=== PATIENT | male | born 1965 | race Caucasian/White ===

== ENCOUNTER 2022-12-08 13:41 | Emergency (ER) | payer MEDICAID, OTHER ==
[~2022-12-08] VITALS: Ht 165.1 cm; Wt 77.3 kg
[~2022-12-08 13:41] MED LIST: NO HOME MEDS
[2022-12-08 17:38] VITALS: BP 129/84
[2022-12-08] MEDS ORDERED: ketorolac trometh. 30mg/ml inj. IM ONE (18:15)
[2022-12-08] MEDS ORDERED: ORPH100T2 PO (18:19)
[2022-12-08] MEDS ORDERED: HYDR-3972 PO (18:19)
== END 2022-12-08 18:32 | disposition home or self-care (01) ==
LOC: ER 13:41
DX: M53.3 Sacrococcygeal disorders, not elsewhere classified (principal); G89.29 Other chronic pain; F17.200 Nicotine dependence, unspecified, uncomplicated; Z72.89 Other problems related to lifestyle; Z98.890 Other specified postprocedural states; Z88.5 Allergy status to narcotic agent; Z79.899 Other long term (current) drug therapy
CPT/HCPCS: 99283

== ENCOUNTER 2023-02-24 14:00 | Emergency (ER) | payer MEDICAID ==
[~2023-02-24] VITALS: Ht 165.1 cm; Wt 75.0 kg
[~2023-02-24 14:00] MED LIST changes: +ORPH100T4 PO
[2023-02-24] MEDS ORDERED: ketorolac tromethamine 15mg/ml inj. IM ONE (19:40)
[2023-02-24 20:02] VITALS: BP 151/97
[2023-02-24 21:05] LABS: BASOPHILS # (AUTO) 0.1 X10'3 (0-0.2); BASOPHILS % (AUTO) 0.8 % (0-1); EOSINOPHILS # (AUTO) 0.3 X10'3 (0-0.9); EOSINOPHILS % (AUTO) 3.8 % (0-6); HEMOGLOBIN 15.7 g/dl (14.0-17.9); LYMPHOCYTES # (AUTO) 1.4 X10'3 (1.1-4.8); LYMPHOCYTES % (AUTO) 16.2 % (21-51); MEAN CORPUSCULAR HEMOGLOBIN 30.1 PG (27.0-31.0); MEAN CORPUSCULAR HGB CONC 33.3 g/dL (33.0-36.5); MEAN CORPUSCULAR VOLUME 90.3 FL (78-98); MEAN PLATELET VOLUME 7.7 FL (7.4-10.4); MONOCYTES # (AUTO) 0.7 X10'3 (0-0.9); MONOCYTES % (AUTO) 8.2 % (2-12); NEUTROPHILS # (AUTO) 6.2 X10'3 (1.8-7.7); PLATELET COUNT 238 X10'3 (140-440); RED CELL DISTRIBUTION WIDTH 13.4 % (11.5-14.5); WHITE BLOOD COUNT 8.8 X10'3 (4.5-11.0)
[2023-02-24 21:16] LABS: ALANINE AMINOTRANSFERASE 46 U/L (12-78); ALBUMIN/GLOBULIN RATIO 1.4 (1.1-1.5); ALKALINE PHOSPHATASE 69 IU/L (46-116); ANION GAP 5 (8-16); ASPARTATE AMINO TRANSFERASE 24 U/L (10-37); BILIRUBIN,TOTAL 0.3 MG/DL (0.1-1.0); BLOOD UREA NITROGEN 13 MG/DL (7-18); BUN/CREATININE RATIO 16.3 (10.0-20.0); CALCIUM 9.1 MG/DL (8.5-10.1); CHLORIDE 104 MMOL/L (99-107); GLUCOSE 136 MG/DL (70-104); POTASSIUM 4.2 MMOL/L (3.5-5.1); SODIUM 139 MMOL/L (135-145); TOTAL CARBON DIOXIDE 29.9 MMOL/L (24-32); TOTAL PROTEIN 6.9 G/DL (6.4-8.2); eGFR > 90 ML/MIN
[2023-02-24] MEDS ORDERED: HYDR-3973 PO (22:02)
[2023-02-24] MEDS ORDERED: LIDO1ADH67 TOP (22:04)
[2023-02-24] MEDS ORDERED: HYDROcodone/acetaminophen 5mg/325mg tablet PO ONE (22:25)
== END 2023-02-24 22:41 | disposition home or self-care (01) ==
LOC: ER 14:00
DX: J32.8 Other chronic sinusitis (principal)
CPT/HCPCS: 36415; 70450; 80053; 85025; 96372; 99285; J1885

== ENCOUNTER 2023-10-07 23:35 | Emergency (ER) | payer MEDICAID ==
[~2023-10-07] VITALS: Ht 165.1 cm; Wt 75.0 kg
[~2023-10-07 23:35] MED LIST changes: +LIDO1ADH67 TOP
[2023-10-07 23:43] VITALS: TEMP 98.6
[2023-10-07 23:55] LABS: BASOPHILS # (AUTO) 0.1 X10'3 (0-0.2); BASOPHILS % (AUTO) 0.8 % (0-1); EOSINOPHILS # (AUTO) 0.1 X10'3 (0-0.9); EOSINOPHILS % (AUTO) 1.1 % (0-6); HEMATOCRIT 48.2 % (42.0-52.0); HEMOGLOBIN 16.1 g/dl (14.0-17.9); LYMPHOCYTES # (AUTO) 1.8 X10'3 (1.1-4.8); LYMPHOCYTES % (AUTO) 19.1 % (21-51); MEAN CORPUSCULAR HEMOGLOBIN 30.1 PG (27.0-31.0); MEAN CORPUSCULAR HGB CONC 33.5 g/dL (33.0-36.5); MEAN CORPUSCULAR VOLUME 89.7 FL (78-98); MEAN PLATELET VOLUME 7.8 FL (7.4-10.4); MONOCYTES % (AUTO) 10.6 % (2-12); NEUTROPHILS # (AUTO) 6.3 X10'3 (1.8-7.7); NEUTROPHILS % (AUTO) 68.4 % (42-75); PLATELET COUNT 251 X10'3 (140-440); RED BLOOD COUNT 5.37 X10'6 (4.70-6.10); RED CELL DISTRIBUTION WIDTH 12.8 % (11.5-14.5); WHITE BLOOD COUNT 9.2 X10'3 (4.5-11.0)
[2023-10-08 00:35] LABS: ALANINE AMINOTRANSFERASE 30 U/L (12-78); ALBUMIN 3.9 G/DL (3.4-5.0); ALKALINE PHOSPHATASE 72 IU/L (46-116); ANION GAP 9 (8-16); ASPARTATE AMINO TRANSFERASE 23 U/L (10-37); BILIRUBIN,TOTAL 0.3 MG/DL (0.1-1.0); BLOOD UREA NITROGEN 14 MG/DL (7-18); BUN/CREATININE RATIO 15.2 (10.0-20.0); CALCIUM 9.5 MG/DL (8.5-10.1); CHLORIDE 104 MMOL/L (99-107); CREATININE 0.92 MG/DL (0.60-1.10); GLUCOSE 100 MG/DL (70-104); POTASSIUM 4.1 MMOL/L (3.5-5.1); PRO BRAIN NATRIURETIC PEPTIDE 56 PG/ML (0-125); SODIUM 141 MMOL/L (135-145); TOTAL CARBON DIOXIDE 27.8 MMOL/L (24-32); eCRCL 74 ML/MIN; eGFR 84 ML/MIN
[2023-10-08] MEDS ORDERED: morphine 4 MG/ML inj SYRINge IV ONE ×2 (03:05→03:26)
[2023-10-08] MEDS ORDERED: nitroGLYCERIN 1gm ointment UD TP ONE ×2 (03:05→03:33)
[2023-10-08] MEDS ORDERED: ondansetron/PF 4mg/2ml inj IV ONE (03:05)
[2023-10-08] MEDS ORDERED: iohexol 350MG/ML 100ml bottle IV ONE (03:21)
[2023-10-08] MEDS ORDERED: ondansetron/PF 4mg/2ml inj ONE (03:26)
[2023-10-08] MEDS ORDERED: diazepam inj 5 MG/ML inj. IV ONE (04:35)
[2023-10-08 05:08] VITALS: BP 143/87; PULSE 60; RESP 16; O2SAT 99
== END 2023-10-08 06:05 | disposition home or self-care (01) ==
LOC: ER 23:35
DX: R07.89 Other chest pain (principal); Z79.899 Other long term (current) drug therapy
CPT/HCPCS: 36415; 71045; 71275; 80053; 83880; 84484; 85025; 93005; 96374; 96375; 99285; J2270; J2405; J3360; J3490; Q9967

== ENCOUNTER → 2024-04-27 | Outpatient (CLI) | payer MEDICAID, OTHER | END | disposition home or self-care (01) | LOC: RAD 13:43 | PROVIDERS: ATTEND Internal Medicine Cardiovascular Disease | DX: R06.02 Shortness of breath (principal) | CPT/HCPCS: 71046 ==

== ENCOUNTER 2024-05-12 14:49 | Observation (INO) | payer MEDICAID ==
[2024-05-08 15:30] LABS: BASOPHILS # (AUTO) 0.1 X10'3 (0-0.2); BASOPHILS % (AUTO) 0.7 % (0-1); EOSINOPHILS # (AUTO) 0.2 X10'3 (0-0.9); EOSINOPHILS % (AUTO) 2.9 % (0-6); LYMPHOCYTES # (AUTO) 1.2 X10'3 (1.1-4.8); MEAN CORPUSCULAR HEMOGLOBIN 30.5 PG (27.0-31.0); MEAN CORPUSCULAR HGB CONC 33.7 g/dL (33.0-36.5); MEAN CORPUSCULAR VOLUME 90.6 FL (78-98); MEAN PLATELET VOLUME 7.9 FL (7.4-10.4); MONOCYTES # (AUTO) 0.8 X10'3 (0-0.9); MONOCYTES % (AUTO) 10.4 % (2-12); NEUTROPHILS # (AUTO) 5.1 X10'3 (1.8-7.7); PRE OP HEMATOCRIT 48.8 % (42.0-52.0); PRE OP HEMOGLOBIN 16.4 g/dL (14.0-17.9); PRE OP PLATELET COUNT 250 X10'3 (140-440); PRE OP WHITE BLOOD COUNT 7.2 10'3 (4.8-10.8); RED BLOOD COUNT 5.39 X10'6 (4.70-6.10); RED CELL DISTRIBUTION WIDTH 13.1 % (11.5-14.5)
[2024-05-08 15:45] LABS: ALBUMIN 3.9 G/DL (3.4-5.0); ALKALINE PHOSPHATASE 75 IU/L (46-116); BLOOD UREA NITROGEN 14 MG/DL (7-18); BUN/CREATININE RATIO 19.2 (10.0-20.0); CALCIUM 9.4 MG/DL (8.5-10.1); CHLORIDE 104 MMOL/L (99-107); CREATININE 0.73 MG/DL (0.60-1.10); PRE OP ALT 35 U/L (30-65); PRE OP ANION GAP 4 (8-16); PRE OP AST 19 U/L (10-37); PRE OP BILIRUB, TOTAL 0.3 MG/DL (0.0-1.0); PRE OP GLUCOSE 103 MG/DL (70-104); PRE OP POTASSIUM 4.7 MMOL/L (3.4-5.1); PRE OP SODIUM 139 MMOL/L (135-145); TOTAL CARBON DIOXIDE 30.6 MMOL/L (24-32); TOTAL PROTEIN 7.7 G/DL (6.4-8.2); eGFR > 90 ML/MIN
[2024-05-08 16:08] LABS: BILIRUBIN,URINE NEGATIVE (Neg); CLARITY,URINE CLEAR (Clear); COLOR,URINE YELLOW (Yellow); GLUCOSE, URINE NEGATIVE (Neg); KETONES,URINE NEGATIVE (Neg); LEUKOCYTE ESTERASE ,URINE NEGATIVE (Neg); NITRITES, URINE NEGATIVE (Neg); OCCULT BLOOD,URINE NEGATIVE (Neg); PH,URINE 6.5 (4.8-8.0); PROTEIN,URINE NEGATIVE (Neg); UROBILINOGEN,URINE 0.2 E.U/dL (0.2-1.0)
[2024-05-08 16:27] LABS: UA COLLECTION TYPE CLN CATCH MIDSTREAM
[~2024-05-12] VITALS: Ht 165.1 cm; Wt 72.0 kg
[2024-05-12] MEDS: cefazolin 2gm/D5W 100mL 100 ML IV ONE (05:30)
[~2024-05-12 14:49] MED LIST changes: +CARB1TAB36 PO; -LIDO1ADH67 TOP; -NO HOME MEDS; -ORPH100T4 PO; +TRAM50TA2 PO
[2024-05-12 15:15] VITALS: BP 124/94; PULSE 71; RESP 16; TEMP 98.2; O2SAT 100
[2024-05-12] MEDS: BUPIVAcaine 2.5mg/ml inj 50ml vial (contains preservative) ONE (15:20)
[2024-05-12] MEDS: famotidine 20mg tablet PO ONE (15:43)
[2024-05-12] MEDS: ringers solution, lacted 1,000 ML IV SCH (15:44)
[2024-05-12 19:17] VITALS: BP 132/79; PULSE 71; RESP 18; TEMP 97.9; O2SAT 99
[2024-05-12 19:23] VITALS: BP_SYST 132; BP_SYST 147; BP_DIAS 103; BP_DIAS 79; PULSE 71; PULSE 89; RESP 18; TEMP 97.9; TEMP 98.2; O2SAT 97; O2SAT 99
[2024-05-12] MEDS: traMADol 50MG tablet PO PRN (21:07)
[2024-05-12] MEDS: carbidoba-levodopa 25-100mg tablet PO SCH (21:07)
[2024-05-12 22:00] VITALS: BP 124/72; PULSE 65; RESP 16; TEMP 98; O2SAT 97
[2024-05-13] VITALS (21 sets, daily range): BP systolic 88–145; BP diastolic 69–99; PULSE 59–88; RESP 9–20; TEMP 97.6–98.2; O2SAT 95–100
[2024-05-13] MEDS ORDERED: ondansetron/PF 4mg/2ml inj IV PRN (16:00)
[2024-05-13] MEDS ORDERED: proCHLORperazine 10 MG/2 ml inj IV PRN (16:00)
[2024-05-13] MEDS ORDERED: morphine 4 MG/ML inj SYRINge IV PRN (16:00)
[2024-05-13] MEDS ORDERED: morphine 2 MG/ML inj. syringe IV PRN (16:00)
[2024-05-13] MEDS ORDERED: meperidine/PF 25mg/ml syringe IV PRN ×2 (16:00)
[2024-05-13] MEDS ORDERED: midazolam 1 mg/ML 2ml injection ONE (16:02)
[2024-05-13] MEDS ORDERED: propofol inj 20 ML IV ONE (16:02)
[2024-05-13] MEDS ORDERED: fentaNYL/PF 50MCG/1 ML 2ML syringe ONE (16:02)
[2024-05-13] MEDS ORDERED: sevoflurane 250ml liquid IH ONE (16:07)
[2024-05-13] MEDS ORDERED: ceFAZolin 1000mg inj ONE ×2 (16:24)
[2024-05-13] MEDS ORDERED: dexamethasone sod phosphate 4mg/ml inj. ONE (16:24)
[2024-05-13] MEDS: BUPIVAcaine 2.5mg/ml inj 50ml vial (contains preservative) SQ ONE (16:43)
[2024-05-13] MEDS ORDERED: ondansetron/PF 4mg/2ml inj ONE (17:03)
[2024-05-13] MEDS ORDERED: HYDROcodone/acetaminophen 10/325mg tab PO PRN (17:30)
[2024-05-13] MEDS ORDERED: naloxone 0.4 mg/ml inj IV PRN (17:30)
[2024-05-13] MEDS: acetaminophen 1,000mg/100ml IV 100 ML IV ONE (17:50)
[2024-05-13] MEDS: ketorolac trometh 30MG/ML vial 30 MG/ML VIAL IV PRN (17:51)
[2024-05-13] MEDS: meperidine/PF 25mg/ml syringe IV PRN (18:03)
[2024-05-13] MEDS: ringers solution, lacted 1,000 ML IV SCH (18:33)
[2024-05-13] MEDS ORDERED: acetaminophen 1,000mg/100ml IV 100 ML IV ONE (20:20)
[2024-05-13] MEDS: HYDROmorphone inj. 0.5 MG/0.5 ML DISP.SYRIN IV PRN (21:03)
[2024-05-14] MEDS ORDERED: ceFAZolin inj. 1,000 MG in dextrose 5%-water 50ml 50 ML IV SCH
== END 2024-05-13 23:05 | disposition home or self-care (01) ==
LOC: PRE-OP 14:49 → SUR 3N 17:34 → INTOOBSV 19:27 → UNDOADMOB 19:27 → SUR 3N 19:27 → UNDODISOB 05-13 23:05
PROVIDERS: ADMIT Surgery; ATTEND Surgery
DX: K40.90 Unilateral inguinal hernia, without obstruction or gangrene, not specified as recurrent (principal); G20.A1 Parkinson's disease without dyskinesia, without mention of fluctuations; F41.9 Anxiety disorder, unspecified; F17.200 Nicotine dependence, unspecified, uncomplicated; Z79.899 Other long term (current) drug therapy
CPT/HCPCS: 36415; 49505; 71046; 74176; 80053; 81003; 82948; 85025; 87081; 93005; 96374; 96375; G0378; J0131; J0690; J1100; J1170; J1885; J2175; J2250; J2405; J2704; J3010; J3490; J7120; A4215; A4618; A7000

== ENCOUNTER 2024-08-24 11:04 | Emergency (ER) | payer MEDICAID ==
[~2024-08-24] VITALS: Ht 165.1 cm; Wt 68.8 kg
[2024-08-24] MEDS: mag hydrox/Alum hydrox/simeth 30ml oral suspension PO ONE (12:12)
[2024-08-24] MEDS: LIDOcaine 2% Viscous 15ml cup MM ONE (12:12)
[2024-08-24] MEDS: normal saline 1000ML IV soln IVB ONE (13:01)
[2024-08-24 13:18] LABS: BASOPHILS % (AUTO) 0.4 % (0-1); EOSINOPHILS # (AUTO) 0.1 X10'3 (0-0.9); EOSINOPHILS % (AUTO) 0.8 % (0-6); HEMATOCRIT 47.7 % (42.0-52.0); HEMOGLOBIN 15.8 g/dl (14.0-17.9); LYMPHOCYTES % (AUTO) 10.9 % (21-51); MEAN CORPUSCULAR HEMOGLOBIN 29.8 PG (27.0-31.0); MEAN CORPUSCULAR VOLUME 90.1 FL (78-98); MEAN PLATELET VOLUME 7.8 FL (7.4-10.4); MONOCYTES # (AUTO) 0.7 X10'3 (0-0.9); MONOCYTES % (AUTO) 7.6 % (2-12); NEUTROPHILS # (AUTO) 7.3 X10'3 (1.8-7.7); NEUTROPHILS % (AUTO) 80.3 % (42-75); PLATELET COUNT 233 X10'3 (140-440); RED BLOOD COUNT 5.29 X10'6 (4.70-6.10); RED CELL DISTRIBUTION WIDTH 13.4 % (11.5-14.5); WHITE BLOOD COUNT 9.1 X10'3 (4.5-11.0)
[2024-08-24 13:31] LABS: ALANINE AMINOTRANSFERASE 38 U/L (12-78); ALBUMIN 3.6 G/DL (3.4-5.0); ALKALINE PHOSPHATASE 66 IU/L (46-116); ANION GAP 3 (8-16); ASPARTATE AMINO TRANSFERASE 18 U/L (10-37); BILIRUBIN,TOTAL 0.5 MG/DL (0.1-1.0); BLOOD UREA NITROGEN 17 MG/DL (7-18); BUN/CREATININE RATIO 19.5 (10.0-20.0); CALCIUM 8.6 MG/DL (8.5-10.1); CHLORIDE 105 MMOL/L (99-107); CREATININE 0.87 MG/DL (0.60-1.10); GLUCOSE 104 MG/DL (70-104); POTASSIUM 4.2 MMOL/L (3.5-5.1); SODIUM 138 MMOL/L (135-145); TOTAL CARBON DIOXIDE 29.9 MMOL/L (24-32); TOTAL PROTEIN 7.2 G/DL (6.4-8.2); eCRCL 78 ML/MIN; eGFR 89 ML/MIN
[2024-08-24 13:39] LABS: PRO BRAIN NATRIURETIC PEPTIDE < 30 PG/ML (0-125)
[2024-08-24] MEDS ORDERED: OMEP40CA21 PO (13:58)
[2024-08-24 14:17] VITALS: BP 135/80; PULSE 63; RESP 16; TEMP 97.8; O2SAT 98
== END 2024-08-24 14:20 | disposition home or self-care (01) ==
LOC: ER 11:05
DX: R10.13 Epigastric pain (principal); G89.29 Other chronic pain; M54.9 Dorsalgia, unspecified; Z98.890 Other specified postprocedural states; Z72.89 Other problems related to lifestyle; Z91.010 Allergy to peanuts
CPT/HCPCS: 36415; 80053; 83880; 84484; 85025; 93005; 96360; 99284; J7030